=== PATIENT | male | born 1970 | race Caucasian/White ===

== ENCOUNTER → 2019-11-23 07:45 | Outpatient (BNVA) | payer OTHER, SELFPAY | PROVIDERS: Family Provider Internal Medicine; PCP Family Medicine; Visit Provider Nurse Practitioner | DX: F43.12 Post-traumatic stress disorder, chronic (principal); F33.2 Major depressive disorder, recurrent severe without psychotic features; F41.9 Anxiety disorder, unspecified; F17.210 Nicotine dependence, cigarettes, uncomplicated | CPT/HCPCS: 99214 ==

== ENCOUNTER → 2019-12-20 07:55 | Outpatient (BNVA) | payer OTHER, SELFPAY | PROVIDERS: Family Provider Internal Medicine; PCP Family Medicine; Visit Provider Nurse Practitioner | DX: F41.9 Anxiety disorder, unspecified (principal); F33.2 Major depressive disorder, recurrent severe without psychotic features; F43.12 Post-traumatic stress disorder, chronic | CPT/HCPCS: 99213 ==

== ENCOUNTER → 2020-03-18 07:41 | Outpatient (BNVA) | payer OTHER, SELFPAY | PROVIDERS: Family Provider Internal Medicine; PCP Family Medicine; Visit Provider Nurse Practitioner | DX: F41.9 Anxiety disorder, unspecified (principal); F33.2 Major depressive disorder, recurrent severe without psychotic features; F43.12 Post-traumatic stress disorder, chronic; F17.210 Nicotine dependence, cigarettes, uncomplicated | CPT/HCPCS: 99214 ==

== ENCOUNTER → 2020-07-02 07:59 | Outpatient (BNVA) | payer OTHER, SELFPAY | PROVIDERS: Family Provider Internal Medicine; PCP Family Medicine; Visit Provider Nurse Practitioner | DX: F43.12 Post-traumatic stress disorder, chronic (principal); F33.2 Major depressive disorder, recurrent severe without psychotic features; F41.9 Anxiety disorder, unspecified; F17.210 Nicotine dependence, cigarettes, uncomplicated | CPT/HCPCS: 99214 ==

== ENCOUNTER → 2020-09-26 07:23 | Outpatient (BNVA) | payer OTHER, SELFPAY | PROVIDERS: Family Provider Internal Medicine; PCP Family Medicine; Visit Provider Nurse Practitioner | DX: F43.12 Post-traumatic stress disorder, chronic (principal); F33.2 Major depressive disorder, recurrent severe without psychotic features; F41.9 Anxiety disorder, unspecified; F17.210 Nicotine dependence, cigarettes, uncomplicated | CPT/HCPCS: 99214 ==

== ENCOUNTER → 2020-11-07 07:45 | Outpatient (BNVA) | payer OTHER, SELFPAY | PROVIDERS: Family Provider Internal Medicine; PCP Family Medicine; Visit Provider Nurse Practitioner | DX: F43.12 Post-traumatic stress disorder, chronic (principal); F33.2 Major depressive disorder, recurrent severe without psychotic features; F41.9 Anxiety disorder, unspecified; F17.210 Nicotine dependence, cigarettes, uncomplicated | CPT/HCPCS: 99214 ==

== ENCOUNTER → 2020-12-05 07:24 | Outpatient (BNVA) | payer OTHER, SELFPAY | PROVIDERS: Family Provider Internal Medicine; PCP Family Medicine; Visit Provider Nurse Practitioner | DX: F43.12 Post-traumatic stress disorder, chronic (principal); F33.2 Major depressive disorder, recurrent severe without psychotic features; F41.9 Anxiety disorder, unspecified; F17.210 Nicotine dependence, cigarettes, uncomplicated | CPT/HCPCS: 99214 ==

== ENCOUNTER → 2022-07-21 08:50 | Outpatient (BNVA) | payer OTHER, SELFPAY | PROVIDERS: Family Provider Internal Medicine; PCP Family Medicine; Referring Provider Family Medicine; Visit Provider Orthopaedic Surgery | DX: M17.11 Unilateral primary osteoarthritis, right knee (principal) | CPT/HCPCS: 99204 ==

== ENCOUNTER 2022-08-21 12:20 | Outpatient (CLI) | payer OTHER, SELFPAY ==
--- NOTE | 2022-08-21 12:30 | CT_ITS ---
WS: [id number] CT RIGHT KNEE, NONCONTRAST TECHNIQUE: Noncontrast CT of the RIGHT knee to include the RIGHT hip and ankle GERALDO protocol. CLINICAL INFORMATION: right knee surgery COMPARISON: June 10, 2022 DLP: [address] scans at [facility] use at least one of these dose optimization techniques: automated e xposure control; mA and/or kV adjustment per patient size (includes targeted exams where dose is matc hed to clinical indication); or iterative reconstruction. FINDINGS: Moderate degenerative narrowing medial joint compartment and patellofemoral articulation. Mild degene rative arthritis both sacroiliac joints partially visualized. Prominent prostate with calcification m easuring 4.6 cm. Mild diffuse bladder wall thickening can be seen with bladder outlet obstruction. Re commend correlation PSA. Normal sigmoid colon. No inguinal lymphadenopathy. Unremarkable RIGHT hip. CT/CT knee RT GERALDO IMPRESSION: Images obtained for preoperative purposes.
== END 2022-08-21 12:21 | disposition home or self-care (01) ==
LOC: RAD 12:21
PROVIDERS: PCP Family Medicine; Visit Provider Orthopaedic Surgery
DX: Z01.818 Encounter for other preprocedural examination (principal); M25.561 Pain in right knee
CPT/HCPCS: 73700

== ENCOUNTER → 2022-08-25 11:01 | Outpatient (BNVA) | payer OTHER, SELFPAY | PROVIDERS: PCP Family Medicine; Visit Provider Orthopaedic Surgery | DX: M17.11 Unilateral primary osteoarthritis, right knee (principal) | CPT/HCPCS: 99213 ==

== ENCOUNTER 2022-09-24 10:53 | Observation (INO) | payer OTHER, SELFPAY ==
[2022-09-17 12:59] VITALS: BMI 22.2
--- NOTE | 2022-09-17 13:49 | ANES.PREANE2 ---
Pre-Anesthetic Assessment Height/Weight: Height 1.83 m Weight 74.389 kg Operation Date: 09/24/22 08:00 Proposed Procedures p right dori total knee arthroplasty/ 30563 M17.11(Right) - Kerwin Sierra MD Familial anesthetic complications: none Was Beta Joelle taken within 24 hours: N/A Was Clonidine taken within 24 hours: N/A Social Tobacco and No alcohol Exam alert, oriented x 3 and regular rate & rhythm Airway Submandibular: within normal limits Cervical ROM: within normal limits Mallampati: Class II Dentition: chipped (missing several) Pulmonary Chronic Obstructive Pulmonary Disease [facility] Lower Back Pain Spinal cord stim Neuropsych Anxiety and Depression PTSD Anesthetic Plan ASA status: 3 Anesthesia: Regional (specify below) (SAB with adductor blk) Medications/Allergies Home Medications Medication Instructions Recorded Confirmed Last Taken Type diphenhydramine HCl 50 mg capsule 50 mg PO .at bed 11/23/19 09/17/22 Unknown History (NightTime Sleep Aid (diphenhydramine)) sertraline 100 mg tablet (Zoloft) 150 mg PO DAILY #45 tabs 04/28/21 09/17/22 09/16/22 Rx benztropine 0.5 mg tablet 0.5 mg PO DAILY 09/17/22 09/17/22 09/16/22 History prazosin 2 mg capsule 1 mg PO .HS 09/17/22 09/17/22 09/16/22 History quetiapine 50 mg tablet (Seroquel) 25 mg PO .HS 09/17/22 09/17/22 09/16/22 History Allergies Allergy/AdvReac Type Severity Reaction Status Date / Time trazodone Allergy ADR-Itching Verified 09/17/22 12:53 [facility] Anesthesia Medical History Alcohol dependence, in remission Anxiety disorder, unspecified Major depressive disorder, recurrent severe without psychotic features Nicotine dependence, cigarettes, uncomplicated Post-traumatic stress disorder, chronic Social History Smoking and tobacco status: current every day smoker cigarettes Smoking risk assessment/counseling performed?: Yes Tobacco counseling given: counseling >3 minutes Data Anesthesia Cardiac Studies: No Data to Display
[2022-09-24] VITALS (18 sets, daily range): BP systolic 103–148; BP diastolic 68–96; PULSE 62–111; RESP 16–20; TEMP 36.6–36.9; O2SAT 93–99; BMI 22.2
[2022-09-24] MEDS: acetaminophen 500 mg Tablet 1000 MG PO ×2 (06:41→15:14)
[2022-09-24] MEDS: oxyCODONE 20 mg ER (12 HR) Tablet PO (06:42)
[2022-09-24] MEDS: CELEcoxib 200 mg Capsule 400 MG PO (06:42)
[2022-09-24] MEDS: gabapentin 300 mg Capsule PO (06:43)
[2022-09-24] MEDS: sodium chloride 0.9% 1,000 ML 30 ML IV (06:44)
--- NOTE | 2022-09-24 07:39 | W.PM.OPSFHP ---
Same Day Surgery H&P Indication for Procedure/HPI DATE OF PROCEDURE: September 24, 2022 CHIEF COMPLAINT/INDICATIONFOR SURGICAL PROCEDURE: Osteoarthritis right knee here for right total knee arthroplasty PREOP DIAGNOSIS: Osteoarthritis right knee PLANNED PROCEDURE: Operation Date: 09/24/22 08:00 Proposed Procedures p right dori total knee arthroplasty/ 50357 M17.11(Right) - Kerwin Sierra MD -year-old male here for elective right total knee arthroplasty. He states that he has had pain in his knee for years, he states that in the last 5 months his pain has increased rapidly from a 3 to an 8/10. He states that his pain is beginning to be intolerable. He states that his pain is to the medial and lateral aspect of the knee. He states that his pain is increased at night but denies his pain waking him up.? He states that his pain is reproduced with daily activities. He states that he has had injections to his knee for 7 years that helped at first but states that his last injection lasted about a week. He states resting will give him mild relief. He states that he uses blue emu cream with mild relief.? 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 He has a history of low back pain and spinal cord stimulator.? He states with his abnormal gait from his knee and his back pain can be unbearable Medications/Allergies* Home Medications Medication Instructions Recorded Confirmed Type benztropine 0.5 mg tablet 0.5 mg PO DAILY 09/17/22 09/24/22 History prazosin 2 mg capsule 1 mg PO .HS 09/17/22 09/24/22 History quetiapine 50 mg tablet (Seroquel) 25 mg PO .HS 09/17/22 09/24/22 History Allergies/Adverse Reactions Allergy/AdvReac Type Severity Reaction Status Date / Time trazodone Allergy ADR-Itching Verified 09/24/22 06:26 Current Medications: Generic Name Dose Route Start Last Admin Trade Name Freq PRN Reason Stop Dose Admin Sodium Chloride 1,000 mls @ 30 mls/hr 09/24/22 06:30 09/24/22 06:44 Sodium Chloride 0.9% IV 09/25/22 06:29 30 mls/hr .Q24H PACHECO Administration Pertinent History/Comorbid Conditions* Medical History (Updated 07/21/22 @ 09:26 by Kerwin Sierra MD) Alcohol dependence, in remission Anxiety disorder, unspecified Major depressive disorder, recurrent severe without psychotic features Nicotine dependence, cigarettes, uncomplicated Post-traumatic stress disorder, chronic Social History Smoking and tobacco status: current every day smoker cigarettes Smoking risk assessment/counseling performed?: Yes Tobacco counseling given: counseling >3 minutes Pertinent Exam Findings alert, oriented x 3, clear to auscultation bilaterally, regular rate & rhythm and operative site marked KNEE right Tenderness medial joint line RANGE OF MOTION: ? ? ? EXAMINED LIMB ? Extention: Full extent ? Flexion: 120 degrees Patella tracks well No patellofemoral crepitation Patient collateral ligaments are stable MOTOR: Strong quadriceps hamstrings tibialis anterior and extensor houses longus strength SENSATION: Intact to light touch Recommendations Surgery/Procedure today Other Plans: Radiographs of the right knee consisting of a standing and on standing AP and a lateral radiograph are reviewed.? The patient has near complete obliteration of his medial joint and varus alignment of the knee Coding Level of Care Code Acute Materials Technician for Farhad Queen
[2022-09-24] MEDS: ceFAZolin 2,000 MG in sodium chloride 0.9% (plus) 50 ML 100 MG IV ×2 (08:05→15:11)
[2022-09-24] MEDS: tranexamic acid 1,000 mg/10mL SDV 1000 MG IV (08:35)
[2022-09-24] MEDS: ketorolac 30 mg/mL INJ XX (08:53)
[2022-09-24] MEDS: tranexamic acid 1,000 mg/10mL SDV 1000 MG XX (08:53)
[2022-09-24] MEDS: sodium chloride 0.9% 100 mL Bag XX (08:54)
[2022-09-24] MEDS: EPINEPHrine 1 mg/mL INJ XX (08:54)
--- NOTE | 2022-09-24 10:14 | XR_ITS ---
WS: [id number] EXAMINATION: XR knee RT 1-2V 76485 REASON FOR EXAM: Right Total Knee arthroplasty COMPARISON: None available. ORDER DATE: 09/24/2022 10:22 AM FINDINGS: There are recent postoperative changes of gas in edema in the soft tissues surrounding the knee. Ther e is satisfactory prosthesis positioning of the total knee replacement components. There is no sign o f periprosthetic osseous abnormality. XR/XR knee RT 1-2V 20507 IMPRESSION: Stable appearance of the total knee arthroplasty.
--- NOTE | 2022-09-24 10:15 | P.OP_ITS ---
Operative Report Date of procedure: September 24, 2022 Pre-op diagnosis: Preop Diagnosis Osteoarthritis right knee Post-op diagnosis: same Post-op diagnosis: Same Post-op findings: Same Procedure done: Right total knee arthroplasty Implants: Adam Triathalon total knee arthroplasty components were used includin) Size 6 triathalon cruciate retaining femoral component 2) Size 6 Tritanium tibial component 3) Size 6/10mm thickness CS tibial bearing insert Pathology: none sent Surgeon: Kerwin Sierra Anesthesia: Nerve Block (Spinal, adductor canal block) Estimated blood loss (mL): 150 Findings: The patient eburnated bone over the medial femoral condyle and medial tibial plateau. There was minimal patellar chondromalacia the patella tracked well with the femoral component Condition: stable Disposition: PACU Procedure: The patient was taken to the operating room. Patient was given 1 g of trane xamic acid and 2 g of Ancef. The above anesthesia provided by the anesthesia service. A timeout was performed. The patient was prepped and draped in the usual fashion with the lower extremity exposed. A anterior incision was made, midline, from a point proximal to the patella to the distal tibial tubercle. The knee was entered through a medial parapatellar approach. The patella could be displaced laterally and the knee flexed. The patellar fat pad was resected to provide better visibility. Retractors were placed medially and laterally adjacent to the tibial plateau. At a point approximately 8 cm above the patella, 2 small incisions were made with a scalpel blade and 2 long threaded pins were placed into the anterior medial femur engaging both cortices. The femoral arrays were placed over these pins and secured. At a point 8 cm distal to the tibial tubercle. 2 shorter bicortical threaded pins were placed across the anterior medial tibia and the tibial arrays placed. A checkpoint was made just proximal and medial to the medial femoral condyle and just medial to the tibial plateau. Small osteotomes were placed in the joint in both flexion and extension to determine ligamentous laxity. The femur was placed in 2 degrees of external rotation in the tibia and 2 degrees varus and 2 mm of elevation create balanced gaps with 2 mm of tightness in extension to accommodate the 9 degrees of hyperextension. The [employer] robot was then introduced to the field and the femur and tibia cut in accordance with our plan. he [place] and NephTenrox Fastseal was then used to provide hemostasi s, particularly about the posterior capsule. A trial with the above components provided excellent stability and full range of motion. The femur was then prepared for the femoral pegs of the component in the tibia for the tibial component. The femur and tibia were then press-fit into place. An osteotome was used to remove the lateral 8 mm of the patella to minimize chances of later impingement. A neurectomy was accomplished circumferentially about the patella with electrocautery and lateral osteophytes removed. Surfaces were cleaned with a gentamicin solution. The femur and tibia were then press-fit into place. The posterior capsule and collateral ligaments were then injected with a solution of 100 mL of 0.2% ropivacaine, 1 mL of a 1:1000 epinephrine solution, 30 mg of Toradol, and 1 g of tranexamic acid. Final polyethylene component was then snapped into place into the tibia. The extensor retinaculum was closed with a running 1 Stratafix interrupted 1 Ethibond. The subcutaneous tissues were closed with 2-0 Vicryl and the skin was closed with a running 4-0 Stratafix. The wound was covered with a Dermabond Prineo dressing. It was covered with 4xrs and a compressive Tubigauze was applied. The patient was taken to recovery room in stable condition.
[2022-09-24] MEDS: fentaNYL 50 mcg/mL INJ 2mL IVP (10:45)
[2022-09-24] MEDS: sodium chloride 0.9% 1,000 ML 100 ML IV (12:19)
--- NOTE | 2022-09-24 13:09 | P.ANESUD_ITS ---
Pre-Anesthetic Update Pre-Anesthetic Assessment: Date of Surgery/Procedure: 09/24/22 Preop Digna gnosis: Osteoarthritis right knee Proposed Procedure: Operation Date: 09/24/22 08:00 Proposed Procedures p right dori total knee arthroplasty/ 51493 M17.11(Right) - Kerwin Sierra MD Any changes to Pre-Anesthetic Assessment?: No Last Intake: Intake Last Liquid Date 09/23/22 Last Liquid Time 22:00 Last Solid Date 09/23/22 Last Solid Time 20:30 Vitals: Temperature 98.4 F 09/24/22 11:30 Temperature Source Oral 09/24/22 11:30 Pulse Rate 67 09/24/22 12:00 Respiratory Rate 16 09/24/22 12:00 Respiratory Effort Non-Labored 09/24/22 11:54 Respiratory Depth Normal 09/24/22 11:54 Respiratory Patter n 09/24/22 11:54 Blood Pressure 103/68 09/24/22 12:00 Blood Pressure Samira n 79 09/24/22 12:00 Pulse Oximetry 97 09/24/22 12:00 Oxygen Delivery Me thod 09/24/22 12:00 Oxygen Flow Rate 6 09/24/22 10:25 Exam: Pre-Anes Outpt Exam: alert, oriented x 3, clear to auscultation bilaterally and regular rate & rhythm Cardiac Studies: No Data to Display
--- NOTE | 2022-09-24 13:10 | ANES.PROC ---
Anesthesia Procedures Procedure/Date: 09/24/22 Nerve Block ^: Nerve Block 1: Main Anesthesia: general anesthesia Time Out Performed: Yes Consent: requested by attending/covering physician, from patient, risks and benefits reviewed and patient agrees to proceed Nerve block location: adductor canal (right) Anesthesia monitors applied: pulse oximetry, EKG, BP cuff and oxygen Nerve block position: supine Anesthetic Used: ropivicaine 0.5% Amount of anesthesia used (mL): 20 Ultrasound used to: recognize landmarks Nerve Stimulator Used?: No Interscalene/Femoral BLK: 4 stimuplex 21 g needle used for position and inplane approach Injection: neg aspiration of heme Patient Tolerated Procedure: well Complications: none
--- NOTE | 2022-09-24 13:21 | ANE.PACU2 ---
Inpatient post-anesthesia follow up: Airway intact: Yes Vital signs: Temperature 98.4 F Pulse Rate 67 Respiratory Rate 16 Blood Pressure 103/68 Pulse Oximetry 97 Oxygen Delivery Me thod Room Air Oxygen Flow Rate 6 Fraction of Inspir ed Oxygen Hydration adequate: Yes Nausea and vomiting: No Pain level: 3 Mental status: Baseline
[2022-09-24] MEDS: oxyCODONE 5 mg IR Tab/Cap PO (13:48)
[2022-09-24] MEDS: morphine 4 mg/mL SDV 1 mL 2 MG IVP (13:49)
--- NOTE | 2022-09-24 14:33 | PM.DCS ---
Discharge Providers Date of Admission: 09/24/22 10:53 Date of Discharge: September 24, 2022 Attending Provider at Admission: Kerwin Crespo MD Attending Provider at Discharge: Kerwin Crespo MD Primary Care Provider: Ignacia Melgar MD Reason for Visit Reason for Visit: M17.11 Brief History: 52-year-old male with a unresponsive to conservative measures. Admitted for elective right total knee arthroplasty Hospital Course Hospital Course The patient tolerated surgery well. They remained hemodynamically stable. They was begun on aspirin and foot pumps for DVT prophylaxis. The patient was mobilized with therapy beginning the day of surgery and was independent with his walker the day of surgery. As the pain was adequately controlled and they were fully mobile they were discharged home. Physical Exam Narrative: On the day of discharge the knee incision was clean. They had no drainage. There is minimal swelling in the thigh and knee and the calf. No distal neurovascular deficits were noted Discharge Data Studies Completed and Pending Completed Studies During Hospitalization Category Date Time Status XR knee RT 1-2V 63658 Routine Exams 09/24/22 10:14 Completed Pending at discharge Category Date Time Status Hemoglobin AM LABS Lab 09/25/22 04:00 Ordered Radiology Impressions Knee X-Ray 09/24/22 10:14 IMPRESSION: Stable appearance of the total knee arthroplasty. Vitals Last Vital Signs Temp 98.2 F 09/24/22 13:30 Pulse 62 09/24/22 13:30 Resp 20 H 09/24/22 13:49 BP 118/79 09/24/22 13:30 Pulse Ox 95 09/24/22 13:30 O2 Del Method 09/24/22 13:30 O2 Flow Rate 6 09/24/22 10:25 Discharge Plan Discharge Patient Disposition: Home Condition: Stable Prescriptions: New oxycodone 5 mg Tablet 5 mg PO Q4H PRN (Reason: Moderate Pain) 7 Days Qty: 40 0RF aspirin 325 mg Tablet,Delayed Release (Dr/Ec) 325 mg PO DAILY 30 Days Qty: 30 0RF celecoxib 200 mg Capsule 200 mg PO Q12H 14 Days Qty: 28 0RF gabapentin 300 mg Capsule 300 mg PO BID 7 Days Qty: 14 0RF acetaminophen 500 mg Tablet 1,000 mg PO Q8H 14 Days Qty: 84 0RF Continued sertraline [Zoloft] 100 mg tablet 150 mg PO DAILY Qty: 45 2RF benztropine 0.5 mg Tablet 0.5 mg PO DAILY prazosin 2 mg capsule 1 mg PO .HS quetiapine [Seroquel] 50 mg tablet 25 mg PO .HS Discharge Orders: Discharge Order (Routine); Ordered 09/24/22 Ordered By: Kerwin Crespo Referrals: Perfecto Dykes FNP [Physician Academic Associate] - 10/06/22 9:00 am Discharge Diet: Advance as tolerated Discharge Activity: Limit activity as instructed Patient Instructions: Opioid Safety Activity Restrictions/Additional Instructions: Okay to shower Keep Tubigauze sleeve in place for swelling. Okay to remove for hygiene. Apply FirstIce up to 20 min/hr for pain and swelling Take Celebrex twice a day for the next 15 days for pain , discontinue other anti-inflammatories Take Neurontin twice a day for 7 days. Take Tylenol 500mg (2 tabs) as needed 3 times a day for mild pain take oxycodone for breakthrough pain. Exercises per physical therapy. May weight-bear as tolerated on total knee arthroplasty IF HAVE ANY PROBLEMS OR QUESTIONS CALL [facility] AT AND ASK TO HAVE DR. CRESPO PAGED. Discharge Attestations Time Spent in Discharge Care*: other Quality Metrics Clinical Quality Measures [ No reported AMI, CVA or VTE this stay] Coding Level of Care Code Acute Alanisg GERMAN MARK note
--- NOTE | 2022-09-25 07:05 | PC.OT ---
OT Eval not completed, patient discharged before time of evaluation.
== END 2022-09-24 16:02 | disposition home health service (06) ==
LOC: MEDSURG 10:53
PROVIDERS: Admitting Provider Orthopaedic Surgery; PCP Family Medicine; Visit Provider Orthopaedic Surgery
PROC: 8E0Y0CZ Robotic Assisted Procedure of Lower Extremity, Open Approach (ICD-10-PCS; CPT 27447; principal; 2022-09-24 08:00)
DX: M17.11 Unilateral primary osteoarthritis, right knee (principal); J44.9 Chronic obstructive pulmonary disease, unspecified; F17.210 Nicotine dependence, cigarettes, uncomplicated
CPT/HCPCS: 27447; 73560; 97110; 97116; 97161; C1776; G0378; J0171; J0690; J1100; J1170; J1580; J1885; J2270; J2405; J2704; J2795; J3010; J3490; J7030

== ENCOUNTER → 2022-10-06 08:41 | Outpatient (BNVA) | payer OTHER, SELFPAY | PROVIDERS: PCP Family Medicine; Visit Provider Nurse Practitioner Family | DX: Z96.651 Presence of right artificial knee joint (principal) | CPT/HCPCS: 99024 ==

== ENCOUNTER → 2022-11-03 08:35 | Outpatient (BNVA) | payer OTHER, SELFPAY | PROVIDERS: PCP Family Medicine; Visit Provider Nurse Practitioner Family | DX: Z96.651 Presence of right artificial knee joint (principal) | CPT/HCPCS: 73560; 73565; 99024 ==

== ENCOUNTER 2022-11-10 20:15 | Emergency (ER) | payer OTHER, SELFPAY ==
--- NOTE | 2022-11-10 20:17 | XRR_ITS ---
PROCEDURE INFORMATION: Exam: XR Right Knee Exam date and time: 11/10/2022 8:22 PM Age: 52 years old Clinical indication: Injury or trauma; Blunt trauma; Prior surgery; Surgery date: 1-6 months; Surgery type: Total knee replacement 09/24/22; Patient HX: Fall today; C/O pain and swelling right knee. TECHNIQUE: Imaging protocol: Radiologic exam of the Right knee. Views: 3 views. COMPARISON: No relevant prior studies available. FINDINGS: Bones/joints: Knee arthroplasty changes in place with soft tissue swelling about the knee, negative for fracture or dislocation. Soft tissues: See Bones/joints finding. XR/XR knee RT 3V* [id number] IMPRESSION: Knee arthroplasty changes in place with soft tissue swelling about the knee, negative for fracture or dislocation.
[2022-11-10 20:23] VITALS: BP 162/103; PULSE 81; RESP 21; TEMP 37.4; O2SAT 98; BMI 21.7
--- NOTE | 2022-11-10 20:42 | W.ED.EXTPRO ---
Documented by User: Denae Monsivais, [employer]avier 11/10/22 22:53 HPI - Extremity Problem General: Chief complaint: Extremity Injury, Lower Stated complaint: knee replacement 4 weeks ago, FALL Time Seen by Provider: 11/10/22 20:17 History of Present Illness: Patient is in today for complaints of right knee pain. He reports that 6:00 this evening he slipped and fell causing his right leg to bend behind him. He reports that he just had knee replacement surgery approximately 4 weeks ago. He reports that he has more swelling now and significant pain. Associated symptoms: Deny chest pain or fever(s) Review of Systems Const: Denies: fever(s) or chills Card: Denies: chest pain, palpitations or irregular heart rhythm Resp: Denies: dyspnea, productive cough or non-productive cough Musc: Reports: extremity pain and joint pain PFS ED PFSH: Medical History Alcohol dependence, in remission Anxiety disorder, unspecified Major depressive disorder, recurrent severe without psychotic features Nicotine dependence, cigarettes, uncomplicated Post-traumatic stress disorder, chronic Social History Smoking and tobacco status: current every day smoker cigarettes Smoking risk assessment/counseling performed?: Yes Tobacco counseling given: counseling >3 minutes Physical Exam Const: COMMON NORMALS: no acute distress (Patient does appear to be in pain but is calm), patient oriented x3 and alert Resp: COMMON NORMALS: normal respiratory effort and No use of accessory muscles Extremity: NARRATIVE EXTREMITY EXAM: Postsurgical scar appreciated to the right knee. There is swelling suprapatellar that is appreciated. There is tenderness medial and lateral aspect of the knee and lateral upper thigh. No obvious bony deformity appreciated. Limited range of motion due to pain. CSM to the distal leg is within normal limits. Neuro: COMMON NORMALS: patient oriented x3 SENSORIUM/ORIENTATION: Yes alert Course Vital Signs: Vital signs: Vital Signs Temperature 99.4 F 11/10/22 20:23 Pulse Rate 72 11/10/22 21:25 Respiratory Rate 18 11/10/22 21:25 Blood Pressure 139/91 11/10/22 21:25 Pulse Oximetry 98 11/10/22 21:25 Oxygen Delivery Me thod 11/10/22 20:23 MDM - Extremity (Nontraumatic) Medical Decision Making X-ray 3 view right knee wet read: Knee hardware appears intact no acute fracture or bony deformity appreciated. Radiologist read knee arthroplasty changes in place is soft tissue swelling about the knee negative for fracture or dislocation Discussed results of imaging with the patient. We discussed conservative treatments at home including reducing weightbearing, ice, rest, elevation for the next few days. I recommend that he contact his orthopedic surgeon tomorrow to make a follow-up appointment. I consulted with Dr. Reed for outpatient pain control for the patient. He provided patient with a prescription for hydrocodone 5 mg / 325 mg take 1 p.o. every 4-6 hours as needed for pain #12 no refill. Advised patient to follow-up with orthopedic surgeon. Follow-up with primary care provider as needed. Return to the ER for new or worsening symptoms. Lab Data Radiology Impressions Knee X-Ray 11/10/22 20:17 IMPRESSION: Knee arthroplasty changes in place with soft tissue swelling about the knee, negative for fracture or dislocation. Discharge Plan Discharge Patient Disposition: Home Clinical Impression: Knee strain, Status post right knee replacement Condition: Stable Prescriptions: No Action sertraline [Zoloft] 100 mg tablet 150 mg PO DAILY Qty: 45 2RF hydrocodone-acetaminophen 5-325 mg tablet 1 tab PO Q4H PRN (Reason: pain) 5 Days Qty: 30 0RF benztropine 0.5 mg Tablet 0.5 mg PO DAILY prazosin 2 mg capsule 1 mg PO .HS quetiapine [Seroquel] 50 mg tablet 25 mg PO .HS hydrocodone-acetaminophen 5-325 mg tablet 1 tab PO Q4H Qty: 30 0RF Discharge Orders: Discharge ED (Routine); Ordered 11/10/22 Ordered By: Denae Monsivais Referrals: Ignacia Melgar MD [Primary Care Provider] - Discharge Diet: Usual diet Discharge Activity: Limit activity as instructed Patient Instructions: Knee Sprain (ED) Activity Restrictions/Additional Instructions: Your x-ray shows knee hardware is intact and there are no acute fractures. Rest, ice, elevate the extremity. Follow-up with your orthopedic surgeon for reevaluation. Return to the ER for new or worsening symptoms. Coding Level of Care Code ED Skid Worker for Chg Fwd Exam Expanded Problem Focused Documented by User: Trevon Reed MD 11/19/22 22:13 HPI - Extremity Problem General: Chief complaint: Extremity Injury, Lower Stated complaint: knee replacement 4 weeks ago, FALL Time Seen by Provider: 11/10/22 20:17 [facility] ED PFSH: Medical History Alcohol dependence, in remission Anxiety disorder, unspecified Major depressive disorder, recurrent severe without psychotic features Nicotine dependence, cigarettes, uncomplicated Post-traumatic stress disorder, chronic Social History Smoking and tobacco status: current every day smoker cigarettes Smoking risk assessment/counseling performed?: Yes Tobacco counseling given: counseling >3 minutes Course Vital Signs: Vital signs: Vital Signs Temperature 99.4 F 11/10/22 20:23 Pulse Rate 72 11/10/22 21:25 Respiratory Rate 18 11/10/22 21:25 Blood Pressure 139/91 11/10/22 21:25 Pulse Oximetry 98 11/10/22 21:25 Oxygen Delivery Me thod 11/10/22 20:23 MDM - Extremity (Nontraumatic) Medical Decision Making X-ray 3 view right knee wet read: Knee hardware appears intact no acute fracture or bony deformity appreciated. Radiologist read knee arthroplasty changes in place is soft tissue swelling about the knee negative for fracture or dislocation Discussed results of imaging with the patient. We discussed conservative treatments at home including reducing weightbearing, ice, rest, elevation for the next few days. I recommend that he contact his orthopedic surgeon tomorrow to make a follow-up appointment. I consulted with Dr. Reed for outpatient pain control for the patient. He provided patient with a prescription for hydrocodone 5 mg / 325 mg take 1 p.o. every 4-6 hours as needed for pain #12 no refill. Advised patient to follow-up with orthopedic surgeon. Follow-up with primary care provider as needed. Return to the ER for new or worsening symptoms. I discussed this case with MARIE Stevenson?C. Trevon Reed MD Emergency Medicine Lab Data Radiology Impressions Knee X-Ray 11/10/22 20:17 IMPRESSION: Knee arthroplasty changes in place with soft tissue swelling about the knee, negative for fracture or dislocation. Discharge Plan Discharge Patient Disposition: Home Clinical Impression: Knee strain, Status post right knee replacement Condition: Stable Prescriptions: No Action sertraline [Zoloft] 100 mg tablet 150 mg PO DAILY Qty: 45 2RF hydrocodone-acetaminophen 5-325 mg tablet 1 tab PO Q4H PRN (Reason: pain) 5 Days Qty: 30 0RF benztropine 0.5 mg Tablet 0.5 mg PO DAILY prazosin 2 mg capsule 1 mg PO .HS quetiapine [Seroquel] 50 mg tablet 25 mg PO .HS hydrocodone-acetaminophen 5-325 mg tablet 1 tab PO Q4H Qty: 30 0RF Discharge Orders: Discharge ED (Routine); Ordered 11/10/22 Ordered By: Denae Monsivais Referrals: Ignacia Melgar MD [Primary Care Provider] - Discharge Diet: Usual diet Discharge Activity: Limit activity as instructed Patient Instructions: Knee Sprain (ED) Activity Restrictions/Additional Instructions: Your x-ray shows knee hardware is intact and there are no acute fractures. Rest, ice, elevate the extremity. Follow-up with your orthopedic surgeon for reevaluation. Return to the ER for new or worsening symptoms. Coding Level of Care Code ED Skid Worker for Farhad Fwd Exam Expanded Problem Focused
[2022-11-10] MEDS: morphine 4 mg/mL SDV 1 mL IVP (21:09)
[2022-11-10] MEDS: ondansetron 2 mg/ML SDV 2 mL 4 MG IVP (21:09)
[2022-11-10 21:25] VITALS: BP 139/91; PULSE 72; RESP 18; O2SAT 98
== END 2022-11-10 21:29 | disposition home or self-care (01) ==
PROVIDERS: Emergency Provider Nurse Practitioner Family; PCP Family Medicine
DX: S86.911A Strain of unspecified muscle(s) and tendon(s) at lower leg level, right leg, initial encounter (principal); Z96.651 Presence of right artificial knee joint; F17.210 Nicotine dependence, cigarettes, uncomplicated; W01.0XXA Fall on same level from slipping, tripping and stumbling without subsequent striking against object, initial encounter
CPT/HCPCS: 73562; 96374; 96375; 99284; J2270; J2405

== ENCOUNTER → 2022-11-12 10:02 | Outpatient (BNVA) | payer OTHER, SELFPAY | PROVIDERS: PCP Family Medicine; Visit Provider Nurse Practitioner Family | DX: Z96.651 Presence of right artificial knee joint (principal); S86.911A Strain of unspecified muscle(s) and tendon(s) at lower leg level, right leg, initial encounter; W00.0XXA Fall on same level due to ice and snow, initial encounter | CPT/HCPCS: 99214 ==

== ENCOUNTER 2022-11-16 14:00 | Outpatient (CLI) | payer OTHER, SELFPAY ==
--- NOTE | 2022-11-16 15:30 | CT_ITS ---
WS: [id number] NONCONTRAST CT LEFT KNEE TECHNIQUE: Noncontrast CT LEFT knee with coronal and sagittal reformatted images. CLINICAL INFORMATION: fall after knee replacement COMPARISON: None. DLP: 307.[address] scans at [facility] use at least one of these dose optimization techniques: automated e xposure control; mA and/or kV adjustment per patient size (includes targeted exams where dose is matc hed to clinical indication); or iterative reconstruction. FINDINGS: Recent postoperative changes RIGHT TKA. No evidence of hardware loosening. Hardware appears in good p osition. Suprapatellar joint effusion with hemarthrosis compatible with recent trauma and/or postoper ative changes. Proximal fibula is normal in appearance. Patella appears normal considering beam harde sam artifact from hardware. CT/CT knee RT wo con* [id number] IMPRESSION: Images moderately degraded by beam hardening artifact from TKA. 1. Recent postoperative changes RIGHT TKA. No evidence of hardware loosening. Hardware appears in good position. 2. Proximal fibula appears normal. 3. No acute fractures. 4. Moderate suprapatellar joint effusion/hemarthrosis compatible with postoper ative changes/recent trauma. 5. No other suspicious findings.
== END 2022-11-16 14:01 | disposition home or self-care (01) ==
LOC: RAD 14:02
PROVIDERS: PCP Family Medicine; Visit Provider Nurse Practitioner Family
DX: Z96.651 Presence of right artificial knee joint (principal); W19.XXXA Unspecified fall, initial encounter; M25.461 Effusion, right knee
CPT/HCPCS: 73700

== ENCOUNTER → 2022-11-18 09:19 | Outpatient (BNVA) | payer OTHER, SELFPAY | PROVIDERS: PCP Family Medicine; Visit Provider Nurse Practitioner Family | DX: S76.111A Strain of right quadriceps muscle, fascia and tendon, initial encounter (principal); W00.2XXA Other fall from one level to another due to ice and snow, initial encounter | CPT/HCPCS: 99214 ==

== ENCOUNTER 2022-11-19 09:12 | Day surgery (SDC) | payer OTHER, SELFPAY ==
[2022-11-18 17:03] VITALS: BMI 22.4
[2022-11-19] VITALS (10 sets, daily range): BP systolic 120–171; BP diastolic 86–112; PULSE 76–108; RESP 16–18; TEMP 36.6–37; O2SAT 92–98
[2022-11-19] MEDS: sodium chloride 0.9% 1,000 ML 30 ML IV (09:46)
--- NOTE | 2022-11-19 12:00 | W.PM.OPSUD ---
Surgery/Procedure H&P Update DATE OF PROCEDURE: November 19, 2022 DATE H&P PERFORMED: 11/18/22 H&P UPDATE INFORMATION: I have reviewed H&P completed within last 30 days PREOP DIAGNOSIS: Right quadriceps tendon tear PLANNED PROCEDURE: Operation Date: 11/19/22 11:05 Proposed Procedures p Tendon Repair [id number] S76.119A(Right) - Kerwin Sierra MD
[2022-11-19] MEDS: ceFAZolin 2,000 MG in sodium chloride 0.9% (plus) 50 ML 100 MG IV (12:07)
--- NOTE | 2022-11-19 12:47 | ANES.PREANE2 ---
Pre-Anesthetic Assessment Height/Weight: Height 1.83 m Weight 74.843 kg Temp Pulse Resp BP Pulse Ox O2 Del Method 98.2 F 76 18 120/86 93 11/19/22 09:28 11/19/22 09:28 11/19/22 09:28 11/19/22 09:28 11/19/22 09:28 11/19/22 09:29 Preop Diagnosis: Right quadriceps tendon tear Operation Date: 11/19/22 11:05 Proposed Procedures p Tendon Repair [id number] S76.119A(Right) - Kerwin Sierra MD Familial anesthetic complications: none Was Beta Joelle taken within 24 hours: N/A Was Clonidine taken within 24 hours: N/A Last intake: Intake Last Liquid Date 11/18/22 Last Liquid Time 20:00 Last Solid Date 11/18/22 Last Solid Time 17:00 Social Tobacco and No alcohol Exam alert, oriented x 3 and regular rate & rhythm Airway Submandibular: within normal limits Cervical ROM: within normal limits Mallampati: Class II Dentition: chipped Comments: Comments: Missing several Pulmonary Chronic Obstructive Pulmonary Disease Musc/skel Lower Back Pain and Osteoarthritis/DJD spinal cord stim Neuropsych Anxiety Anesthetic Plan ASA status: 3 Anesthesia: General Medications/Allergies Home Medications Medication Instructions Recorded Confirmed Last Taken Type sertraline 100 mg tablet (Zoloft) 150 mg PO DAILY #45 tabs 04/28/21 11/19/22 11/18/22 Rx benztropine 0.5 mg tablet 0.5 mg PO DAILY 09/17/22 11/19/22 11/18/22 History prazosin 2 mg capsule 1 mg PO .HS 09/17/22 11/19/22 11/18/22 History quetiapine 50 mg tablet (Seroquel) 25 mg PO . 09/17/22 11/19/22 11/18/22 History hydrocodone 5 mg-acetaminophen 325 1 tab PO Q4H PRN pain 5 days #30 11/12/22 11/19/22 11/19/22 Rx mg tablet tabs Allergies Allergy/AdvReac Type Severity Reaction Status Date / Time morphine Allergy ADR-Vomitin Verified 11/18/22 17:00 g trazodone Allergy ADR-Itching Verified 11/18/22 17:00 Current Medications Generic Name Dose Route Start Last Admin Trade Name Freq PRN Reason Stop Dose Admin Sodium Chloride 1,000 mls @ 30 mls/hr 11/19/22 09:30 11/19/22 09:46 Sodium Chloride 0.9% IV 11/20/22 09:29 30 mls/hr .Q24H PACHECO Administration PFSH Anesthesia Medical History Alcohol dependence, in remission Anxiety disorder, unspecified Major depressive disorder, recurrent severe without psychotic features Nicotine dependence, cigarettes, uncomplicated Post-traumatic stress disorder, chronic Social History Smoking and tobacco status: current every day smoker cigarettes Smoking risk assessment/counseling performed?: Yes Tobacco counseling given: counseling >3 minutes Data Anesthesia Cardiac Studies: No Data to Display
--- NOTE | 2022-11-19 13:16 | PM.OP ---
Operative Report Date of procedure: November 19, 2022 Pre-op diagnosis: Preop Diagnosis Right quadriceps tendon rupture Post-op diagnosis: same Procedure done: Open repair right quadriceps tendon rupture Pathology: none sent Surgeon: Kerwin Sierra Anesthesia: General Estimated blood loss (mL): 25 Tourniquet time (min): 46 Findings: The patient had a complex tear of his quadriceps tendon involving a avulsion of the vastus medialis from the superior medial patella, sagittal split extending up into the vastus intermedius, and a axial transverse disruption of the vastus medialis from the distal retinaculum Condition: stable Disposition: PACU Brief History: The patient underwent elective right total knee arthroplasty on 09/24/2022 with unremarkable postoperative course. On 11/10/2022 he slipped and fell on the ice with immediate pain and a loss of active extension of the right knee. He was seen in clinic and clinically found to have a quadriceps tendon tear. He was taken to the operating room to restore continuity the quadriceps and active extension of the knee Procedure: Hi the patient was taken to the operating room and given a general anesthesia. He was given 2 g of Ancef. A tourniquet was inflated to 300 mmHg. The proximal extent of the total knee incision was opened up over a distance of approximately 8 cm dissection carried down through subcutaneous tissue to the extensor mechanism. Full-thickness flaps were mobilized medially and laterally about the proximal patella allowing visualization of the disrupted tendon. The the vastus medialis tendon was torn free in a bilaminar fashion with a thinner anterior flap of superficial fascia and retinaculum and a deeper more substantial cuff of the avulsed tendon. I initially a Ultratape suture was passed through the most superior portion of the avulsed deep abscess medialis tendon and locked into place with locking Krak?w sutures to free ends exiting the distal superior tendon a second suture was placed in a more medial position with the 2 suture ends exiting more medially. The superior medial patella was rongeured to vascular bone. 3 drill holes were made from superior and medial to a inferior lateral position. Once of the suture ends was passed through the central tunnel and the free suture was passed through the superior more medial tunnel. They were secured over the inferior lateral patella drawing the tendon this cuff into the superior patella. Next the split in the vastus medialis was closed with vertical mattress #1 Ethibond sutures. The more anterior flap of vastus medialis was sutured back into the intermedius and the periosteum over the anterior patella. The coronal split in the extensor mechanism distal to the vastus medialis was finally closed. Knee was brought through a range of motion from full extension to 90 degrees of flexion. Adhesions within the knee were felt to release and the repair was felt to be stable throughout that range of motion. Subcutaneous tissues were closed with 2-0 STRATAFIX suture. The skin was closed with a running 4-0 STRATAFIX suture. Prineo skin glue was applied. A OpSite dressing and to be gauze were applied. Patient was placed in a knee immobilizer, extubated, and taken to recovery in stable condition.
[2022-11-19] MEDS: HYDROmorphone 1 mg/mL INJ 1 mL 0.5 MG IVP (13:39)
--- NOTE | 2022-11-19 14:24 | ANE.PACU2 ---
Inpatient post-anesthesia follow up: Airway intact: Yes Vital signs: Temperature 98.6 F Pulse Rate 95 Respiratory Rate 16 Blood Pressure 144/98 Pulse Oximetry 94 Oxygen Delivery Me thod Room Air Oxygen Flow Rate Fraction of Inspir ed Oxygen Hydration adequate: Yes Nausea and vomiting: No Pain level: 3 Mental status: Baseline
[2022-11-19] MEDS: HYDROcodone-acetaminophen 5-325 mg Tablet 1 TAB PO (14:27)
== END 2022-11-19 15:20 | disposition home or self-care (01) ==
PROVIDERS: PCP Family Medicine; Visit Provider Orthopaedic Surgery
PROC: (CPT 27385; principal; 2022-11-19 10:45)
DX: S76.111A Strain of right quadriceps muscle, fascia and tendon, initial encounter (principal); X58.XXXA Exposure to other specified factors, initial encounter; J44.9 Chronic obstructive pulmonary disease, unspecified; F41.9 Anxiety disorder, unspecified; F17.210 Nicotine dependence, cigarettes, uncomplicated
CPT/HCPCS: 27385; J0690; J1100; J1170; J2405; J2704; J3010; J3490; J7030

== ENCOUNTER 2022-11-26 06:00 | Outpatient (RCR) | payer OTHER, SELFPAY | END 2022-12-15 23:59 | disposition home or self-care (01) | LOC: SPT 06:00 | PROVIDERS: PCP Family Medicine; Visit Provider Orthopaedic Surgery | DX: Z47.89 Encounter for other orthopedic aftercare (principal); Z96.651 Presence of right artificial knee joint; M25.561 Pain in right knee | CPT/HCPCS: 97110; 97161 ==

== ENCOUNTER → 2022-12-02 13:58 | Outpatient (BNVA) | payer OTHER, SELFPAY | PROVIDERS: PCP Family Medicine; Visit Provider Orthopaedic Surgery | DX: Z98.890 Other specified postprocedural states (principal) | CPT/HCPCS: 99024 ==

== ENCOUNTER 2022-12-16 06:00 | Outpatient (RCR) | payer OTHER, SELFPAY | END 2023-01-15 23:59 | disposition home or self-care (01) | LOC: SPT 06:00 | PROVIDERS: PCP Family Medicine; Visit Provider Orthopaedic Surgery | DX: Z47.89 Encounter for other orthopedic aftercare (principal) | CPT/HCPCS: 97110 ==

== ENCOUNTER → 2022-12-30 13:13 | Outpatient (BNVA) | payer OTHER, SELFPAY | PROVIDERS: PCP Family Medicine; Visit Provider Orthopaedic Surgery | DX: Z47.89 Encounter for other orthopedic aftercare (principal) | CPT/HCPCS: 99024 ==

== ENCOUNTER 2023-01-16 06:00 | Outpatient (RCR) | payer OTHER, SELFPAY | END 2023-02-14 23:59 | disposition home or self-care (01) | LOC: SPT 06:00 | PROVIDERS: PCP Family Medicine; Visit Provider Orthopaedic Surgery | DX: Z47.89 Encounter for other orthopedic aftercare (principal); Z98.890 Other specified postprocedural states | CPT/HCPCS: 97110 ==

== ENCOUNTER → 2023-01-27 13:18 | Outpatient (BNVA) | payer OTHER, SELFPAY | PROVIDERS: PCP Family Medicine; Visit Provider Orthopaedic Surgery | DX: Z98.890 Other specified postprocedural states (principal) | CPT/HCPCS: 99024 ==

== ENCOUNTER → 2023-05-11 08:59 | Outpatient (BNVA) | payer OTHER, SELFPAY | PROVIDERS: PCP Family Medicine; Visit Provider Student in an Organized Health Care Education/Training Program | DX: Z96.651 Presence of right artificial knee joint (principal); Z98.890 Other specified postprocedural states | CPT/HCPCS: 73560; 73565; 99213 ==

== ENCOUNTER → 2024-06-13 08:26 | Outpatient (BNVA) | payer OTHER, SELFPAY | PROVIDERS: PCP Family Medicine; Referring Provider Family Medicine; Visit Provider Psychiatry & Neurology Neurology | DX: R25.1 Tremor, unspecified (principal); G47.52 REM sleep behavior disorder; R25.9 Unspecified abnormal involuntary movements; F17.200 Nicotine dependence, unspecified, uncomplicated | CPT/HCPCS: 99203 ==

== ENCOUNTER 2024-07-05 09:29 | Outpatient (CLI) | payer OTHER, SELFPAY ==
--- NOTE | 2024-07-05 10:00 | CT_ITS ---
WS: [id number] CT HEAD WITH AND WITHOUT CONTRAST HISTORY: R25.1 - Tremor, unspecified TECHNIQUE: Noncontrast 2.5 mm axial images obtained from the vertex to the skull base. Additional ashvin ging performed at 2.5 mm axial images status post IV contrast. Bone and soft tissue windows are revie wed. All CT scans at [facility] use at least one of these dose optimization techniques: autom ated exposure control; mA and/or kV adjustment per patient size (includes targeted exams where dose i s matched to clinical indication); or iterative reconstruction. CONTRAST: Omnipaque 350; 100 mL IV. DLP: 2009.75 mGy.cm COMPARISON: None available. No acute intracranial hemorrhage, edema or midline shift. Very minimal atrophy. Bifrontal lobe atrophy. No prior infarct. Minimal small vessel ischemic disease . No enhancing masses. No vascular malformations. No dural enhancement. Hippocampal formations as visua lized by CT abnormal. No significant atrophy. Dural venous sinuses are normally enhancing. Visualized sleetmute of Mc is unremarkable. Normal size pituitary gland. Paranasal sinuses as visualized: Clear. Mastoid air cells: Clear. Calvarium and scalp: Intact. CT/CT head wo/w con [id number] IMPRESSION: 1. No acute hemorrhage or edema. 2. Very mild bilateral frontal lobe atrophy and mild small vessel disease. 3. No focal atrophy. 4. No enhancing masses or vascular malformations. 5. Normal ventricles.
[2024-07-05] MEDS: iohexol 350 mg/mL 500 mL Btl (per mL) IV (10:25)
== END 2024-07-05 09:30 | disposition home or self-care (01) ==
LOC: RAD 09:31
PROVIDERS: PCP Family Medicine; Visit Provider Psychiatry & Neurology Neurology
DX: R25.1 Tremor, unspecified (principal)
CPT/HCPCS: 70470

== ENCOUNTER → 2024-09-12 07:35 | Outpatient (BNVA) | payer OTHER, SELFPAY | PROVIDERS: PCP Family Medicine; Visit Provider Psychiatry & Neurology Neurology | DX: R25.9 Unspecified abnormal involuntary movements (principal); R56.9 Unspecified convulsions | CPT/HCPCS: 95816; 95819 ==

== ENCOUNTER 2024-12-21 20:00 | Outpatient (CLI) | payer OTHER, SELFPAY | END 2024-12-21 20:01 | disposition home or self-care (01) | LOC: SLEEP 12-22 00:13 | PROVIDERS: PCP Family Medicine; Visit Provider Internal Medicine Pulmonary Disease | DX: G47.33 Obstructive sleep apnea (adult) (pediatric) (principal) | CPT/HCPCS: 95810 ==

== ENCOUNTER → 2025-05-09 14:44 | Outpatient (BNVA) | payer OTHER, SELFPAY | PROVIDERS: PCP Family Medicine; Referring Provider Family Medicine; Visit Provider Psychiatry & Neurology Neurology | DX: R25.9 Unspecified abnormal involuntary movements (principal); R26.89 Other abnormalities of gait and mobility | CPT/HCPCS: 99212 ==

== ENCOUNTER 2025-05-25 10:54 | Outpatient (CLI) | payer OTHER, SELFPAY ==
[2025-05-25 12:36] LABS: Magnesium 2.1 mg/dL (1.7-2.3)
[2025-05-25 12:53] LABS: Vitamin B12 167 pg/mL (232-1245)
[2025-05-26 07:20] LABS: PROTEIN, TOTAL 7.0 g/dL (6.1-8.1)
== END 2025-05-25 10:55 | disposition home or self-care (01) ==
LOC: LAB 10:56
PROVIDERS: PCP Family Medicine; Visit Provider Psychiatry & Neurology Neurology
DX: R25.9 Unspecified abnormal involuntary movements (principal)
CPT/HCPCS: 36415; 82525; 82542; 82607; 82746; 83735; 83921; 84155; 84165; 86334

== ENCOUNTER 2025-05-30 14:42 | Outpatient (CLI) | payer OTHER, SELFPAY ==
--- NOTE | 2025-05-30 14:48 | USCV_ITS ---
Rip Mata Age: 55 Gender: M : 1970 Exam Date: 05/30/2025 14:55 Ordering Phys: Alexandro Menendez MD Technologist: Exam Location: [facility] Indication: balance disorder Risk Factors: Previous Vascular Surgery: Right Brachial BP: / Left Brachial BP: / Right Left Velocity (cm/s) Spectral Plaque Velocity (cm/s) Spectral Plaque Syst/Diast Broadening Syst/Diast Broadening 104.40/29.30 Prox CCA 91.00 / 32.70 108.30/37.40 Mid CCA 80.70 / 25.00 114.60/43.40 Distal CCA 106.20/ 40.70 83.50/ 26.40 Prox ICA 66.30 / 29.30 73.20/ 33.00 Mid ICA 88.50 / 34.30 52.80/ 25.80 Distal ICA 54.30 / 31.90 82.30 ECA 83.50 0.70 ICA/CCA 0.60 Antegrade Vertebral Antegrade 57.20/ 24.60 cm/s 49.90/ 23.50 cm/s Tri Subclavian Tri 63.50 77.40 CONCLUSIONS Right ICA stenosis <50%. Left ICA stenosis <50%. Intimal thickening in the common carotid arteries and internal carotid arteries bilaterally. Normal antegrade Doppler flow noted in the right vertebral artery. Normal antegrade Doppler flow noted in the left vertebral artery. Fish Akers MD (Electronically Signed) Final Date: 30 May 2025 15:33 S
== END 2025-05-30 14:43 | disposition home or self-care (01) ==
LOC: RAD 14:43
PROVIDERS: PCP Family Medicine; Visit Provider Psychiatry & Neurology Neurology
DX: R26.89 Other abnormalities of gait and mobility (principal); I65.23 Occlusion and stenosis of bilateral carotid arteries
CPT/HCPCS: 93880

== ENCOUNTER 2025-06-07 10:00 | Outpatient (CLI) | payer OTHER, SELFPAY | END 2025-06-07 10:01 | disposition home or self-care (01) | LOC: LAB 10:01 | PROVIDERS: PCP Family Medicine; Visit Provider Psychiatry & Neurology Neurology | DX: R25.9 Unspecified abnormal involuntary movements (principal) | CPT/HCPCS: 82525 ==